=== PATIENT | female | born 1940 | race Caucasian/White ===

== ENCOUNTER 2016-10-06 05:34 | Inpatient (IN) | payer MEDICARE ==
[2016-09-26 14:15] LABS: BUN (BLOOD UREA NITROGEN) 20 MG/DL (6-23); CALCIUM, SERUM 9.8 MG/DL (8.5-10.4); CHLORIDE, SERUM 110 MMOL/L (96-112); CO2 (CARBON DIOXIDE) 26 MMOL/L (24-34); CREATININE 1.07 MG/DL (0.55-1.02); GFR AFRICAN AMERICAN 59 ML/MIN (>=60); GFR NON AFRICAN AMERICAN 51 ML/MIN (>=60); GLUCOSE, SERUM 102 MG/DL (60-99); POTASSIUM, SERUM 4.8 MMOL/L (3.5-5.3); SODIUM, SERUM 139 MMOL/L (135-148)
[2016-09-26 15:35] LABS: ASCORBIC ACID (UR NOT ORDER) 20 (NEG); BILIRUBIN, URINE NEGATIVE (NEG); KETONE, URINE NEGATIVE (NEG); LEUKOCYTE ESTERASE(NOT OR NEG (NEG); WBC (NOT ORDERED) (RFLEX) < 1 (0-5)
--- NOTE | ~2016-10-06 | DS ---
Discharge Summary [facility] [address] [place]. [address] NAME: RANGEL ARANDA : 42 STATUS : DIS IN PAT#: [id number] AGE: 76 ADM/REG DATE : 10/06/16 MR#: [id number] REPORT SERV DATE: 10/26/16 DICTATED BY: BENJIE DUTTON DATE: 10/25/16 REPORT STATUS : Draft TRANSCRIBED BY: BART DATE: 10/25/16 Data Collection from hospitalization DISCHARGE DIAGNOSES: 1. Coronary artery disease. 2. Atrial fibrillation. 3. Chronic obstructive pulmonary disease. 4. Hypertension. 5. Hyperlipidemia. 6. History of lung cancer. 7. Obesity. 8. Peripheral vascular disease. 9. Hypercholesterolemia. 10.History of myocardial infarction. 11.Chronic obstructive pulmonary disease. 12.Osteoarthritis. 13.Gastroesophageal reflux disease. 14.Depression. 15.Former tobacco use. CONSULTATIONS: Dr. Killian Keenan. PROCEDURES PERFORMED: Median sternotomy extracorporeal circulation, elective coronary artery bypass grafting x3 with ORTIZ to the LAD, reverse greater saphenous vein graft to the obtuse marginal #1, reverse greater saphenous vein graft to the distal RCA, transesophageal echocardiogram, endoscopic vein harvest from the bilateral lower extremities, rigid external fixation of the sternum, Prevena dressing placement on 10/06/2016. MEDICATIONS: Praluent 150 mg subcutaneously every 14 days, Cordarone 200 mg daily, aspirin 81 mg daily, Coreg 6.25 mg twice a day, CoQ10 of 100 mg every morning as instructed, Lasix 40 mg twice a day, Prinivil 5 mg at bedtime, Remeron 15 mg at bedtime, Dulera two puffs via inhaler twice a day as needed, niacin 500 mg daily, Nitrostat 0.4 mg sublingually as needed, Roxicodone 5 mg every six hours as needed, Percocet 10/325 one tablet every four hours as needed, Protonix 40 mg twice a day, Zoloft 100 mg twice a day, Spiriva HandiHaler one inhalation daily as instructed, Coumadin 2.5 mg every evening. She was instructed not to continue Pradaxa, isosorbide, metoprolol, or Plavix. CONDITION AT DISCHARGE: Stable. DISPOSITION: The patient was discharged to home on a mechanical soft, low-cholesterol low- sodium diet with activities as instructed. She would follow up with me, 11/07/2016. She would follow up with Dr. Colby Christie, 11/13/2016. She would follow up with Dr. Orlin Harris in 7 to 10 days following discharge. She would follow up with cardiac rehab, 11/14/2016, and have her INR level checked at the [facility], 10/16/2016. HOSPITAL COURSE: This is a 76-year-old female who has a complicated long past medical history including bilateral lobectomies for lung cancer with a remote history of smoking and Discharge Summary [id number] [place]. [address] NAME: RANGEL ARANDA : 42 STATUS : DIS IN PAT#: [id number] AGE: 76 ADM/REG DATE : 10/06/16 MR#: [id number] REPORT SERV DATE: 10/26/16 DICTATED BY: BENJIE DUTTON DATE: 10/25/16 REPORT STATUS : Draft TRANSCRIBED BY: BART DATE: 10/25/16 three-vessel coronary artery disease and anginal symptoms for which medical management was tried. She had progressive symptoms and had ultimately been referred for coronary artery bypass grafting. Treatment options were discussed and she agreed to proceed with surgical intervention. She was admitted at this time for further evaluation and treatment. Upon admission, she was taken to the operating room where she underwent the above-mentioned procedure. She tolerated this well and there were no complications. Postoperatively, she was seen by Dr. Killian Keenan. She was still intubated and sedated. She was in a normal sinus rhythm. No Crestor support was needed at this time. On postop day #1, she did complain of pain. She was going to be transferred to the floor. White count was 15.2. Creatinine level was 1.18. On 10/08/2016, she had developed atrial fibrillation overnight. Her sternum was stable. She had trace edema. She was on diltiazem. Lovenox bridging to Coumadin had been started. The following day, her INR level had increased to 2.2. She was up sitting in a chair. She said she felt good. Her only complaint was soreness with coughing and deep breathing. She was in rate controlled atrial fibrillation. Lovenox was going to be discontinued that day. Her pain was well controlled. Later in the day, she was in a sinus rhythm with paroxysms of atrial fibrillation noted. She was changed to Pradaxa. Lovenox was stopped. Metoprolol was added. The patient has mild left ventricular diastolic dysfunction. On 10/10/2016, hemoglobin level had decreased to 7.1, INR level had increased to 3.2. She had no edema. Paroxysmal atrial fibrillation was controlled on Coumadin. Coumadin had been held the previous evening until her INR level had increased. She was transfused one unit of packed red blood cells. Aspirin and amiodarone were continued. Over the next couple of days, she continued to do well. She had no new issues. Hemoglobin had increased after transfusion to 8.5. INR level was now 2.2. The Masoud drain was discontinued. Diuresis was given. Discharge planning was performed. Telemetry revealed sinus rhythm. Chest x-ray revealed bilateral effusions. Amiodarone was adjusted. Coreg was continued. Lisinopril was added. Diuresis was performed. She was mobilizing independently. On 10/12/2016, she said she felt good. She had no new complaints. She had no chest pain or pressure sensation. She remained in a sinus rhythm at this time. Coreg and amiodarone were continued. INR level was 2.2. Discharge instructions were given. Due to her improved and stable condition, she was discharged to home with the above-stated instructions. Information collected by: Ila Ragsdale I submit the above information as my discharge summary. TG/MODL Benjie Dutton MD / [id number] CC: MD Orlin Huffman M.D. Discharge Summary [address] [address] NAME: RANGEL ARANDA : 42 STATUS : DIS IN PAT#: [id number] AGE: 76 ADM/REG DATE : 10/06/16 MR#: [id number] REPORT SERV DATE: 10/26/16 DICTATED BY: BENJIE DUTTON DATE: 10/25/16 REPORT STATUS : Draft TRANSCRIBED BY: BART DATE: 10/25/16 Killian Keenan M.D.
--- NOTE | ~2016-10-06 | OP ---
Record Of Operation [address] [place]. [address] NAME: RANGEL ARANDA : 42 STATUS : ADM IN PAT#: [id number] AGE: 76 ADM/REG DATE : 10/06/16 MR#: [id number] REPORT SERV DATE: 10/06/16 DICTATED BY: BENJIE DUTTON DATE: 10/06/16 REPORT STATUS : Draft TRANSCRIBED BY: MODL DATE: 10/06/16 DATE OF PROCEDURE: 10/06/2016 PREOPERATIVE DIAGNOSES: 1. Unstable angina. 2. Three-vessel coronary artery disease. 3. Hypertension. 4. Hyperlipidemia. 5. Chronic obstructive pulmonary disease. 6. History of lung cancer x2. 7. Remote history of tobacco abuse. POSTOPERATIVE DIAGNOSES: 1. Unstable angina. 2. Three-vessel coronary artery disease. 3. Hypertension. 4. Hyperlipidemia. 5. Chronic obstructive pulmonary disease. 6. History of lung cancer x2. 7. Remote history of tobacco abuse. OPERATION/PROCEDURE PERFORMED: 1. Median sternotomy. 2. Extracorporeal circulation. 3. Elective coronary artery bypass graft x3, left internal mammary artery, left anterior descending, reverse greater saphenous vein graft to obtuse marginal #1, reverse greater saphenous vein graft to distal RCA. 4. CLEMENTINA. 5. Endoscopic vein harvest, bilateral lower extremities. 6. Rigid external fixation of the sternum. 7. Prevena dressing placement. CONTACT LENS ASSISTANT: Jamey Cardoso. ANESTHESIOLOGIST: Dr. Armando Macdonald. COMPLICATIONS: None. TUBES AND DRAINS: A 24-[place] Masoud to the left pleural space. A 32-[place] Island[place] anterior mediastinal chest tube. POSTOPERATIVE CONDITION: Stable to CVICU, weaned from cardiopulmonary bypass on no inotropic support. INTRAOPERATIVE FINDINGS: Transesophageal echo showed mild MR, mild with a mean gradient of 9, valve area of 1.9, with normal function. Post procedure, there was preserved function Record Of Operation [facility] [address] [facility] [place]. [address] NAME: RANGEL ARANDA : 42 STATUS : ADM IN PAT#: [id number] AGE: 76 ADM/REG DATE : 10/06/16 MR#: [id number] REPORT SERV DATE: 10/06/16 DICTATED BY: BENJIE DUTTON DATE: 10/06/16 REPORT STATUS : Draft TRANSCRIBED BY: MODL DATE: 10/06/16 with no change in the valvular gradients. ANATOMIC DETAILS: The vein in the left thigh was usable. Vein from the right thigh was unable to be found. Vein from her left calf and her right calf was too small to be used. Mariano test revealed that her palmar arch was not intact and at least the left hand she would not tolerate a radial graft. DETAILS OF CARDIOPULMONARY BYPASS GRAFTS: 1. ORTIZ to left anterior descending, 1.75 mm target. 2. Reverse greater saphenous vein graft to obtuse marginal #1, this is a 1.5 mm diffusely diseased target. 3. Reverse greater saphenous vein graft to distal RCA. This was 2 mm diffusely diseased target. DETAILS OF STERNAL PLATING: Sternal plating was performed with [employer] plating system. Three sternal plates were used. These were placed between the sternal wires which were stainless steel wires. A 1X plate was placed on the body of the sternum. One 100- degree plate was placed on the body of the sternum and one 100-degree plate was placed on the body of manubrium. Four 14 mm screws were used on the 100-degree plate on the body of the manubrium and twelve 12 mm screws were used for the X-plate in the 100-degree plate on the body of the sternum. INDICATIONS FOR PROCEDURE: Ms. Aranda is a 76-year-old female with a complicated long past medical history, including bilateral lobectomies for lung cancer with remote history of smoking with three-vessel coronary artery disease and anginal symptoms for which medical management was tried. She had progressive symptoms and she was ultimately referred for coronary artery bypass grafting. The risks, benefits, and alternatives were discussed with the patient including but not limited to, bleeding, infection, stroke, , heart attack, need for future operations. Her STS risk score was discussed with the patient with a total mortality risk less than 5% and a totally minimum risk less than 20% were discussed with the patient. All questions were answered. DETAILS OF PROCEDURE: The patient was brought to the operating room, placed supine on the operating room table. After satisfactory induction of general endotracheal anesthesia, she was prepped and draped in usual sterile fashion. Working simultaneously, a median sternotomy was performed while the endoscopic vein harvest was performed from bilateral lower extremities. Skin and subcutaneous tissues were divided. Clavipectoral fascia was divided. Sternum was opened. Rultract retractor was placed. Internal mammary artery was harvested in pedicle fashion. It was takeoff under the subclavian vein to the bifurcation of the diaphragm. Systemic heparinization was achieved. After 3 minutes, the pedicle was clipped and divided to the bifurcation of the diaphragm. Rultract retractor was removed. The sternal retractor was placed. Thymic tissue was opened in the midline. Pericardium was opened in the midline. Pericardial well was created. Ascending aortic cannulation was achieved. Dual stage venous cannulation was achieved through a pursestring in the right atrial side wall. Antegrade root vent cardioplegia tack was placed. The conduit was brought up, prepared for bypass. After documentation of an adequate ACT, cardiopulmonary bypass was initiated. Targets were inspected, felt to be as depicted in the findings. The Record Of Operation [facility] [address] [facility] [place]. [address] NAME: RANGEL ARANDA : 42 STATUS : ADM IN [facility]#: [id number] AGE: 76 ADM/REG DATE : 10/06/16 MR#: [id number] REPORT SERV DATE: 10/06/16 DICTATED BY: BENJIE DUTTON DATE: 10/06/16 REPORT STATUS : Draft TRANSCRIBED BY: BART DATE: 10/06/16 cross-clamp was brought up and the heart was arrested with cold antegrade cardioplegia, switching cold antegrade cardioplegia every 15 to 20 minutes throughout the remainder of the cross-clamp. The distal right artery was dissected out and the reverse greater saphenous vein graft was anastomosed to the distal RCA. This was approximately 2 mm target. Vein was cut to length, spatulated, and a running continuous anastomosis was performed after performing a proximal aortotomy with enlarging with 4 mm punch. Vein graft marker was placed. Attention was turned to the obtuse marginal #1. This was an extremely diffusely diseased artery. I was able to find a soft spot in the distal and perform a coronary bypass using reverse greater saphenous vein. This was approximately 1.5 mm. Vein was cut to length, spatulated, and a running continuous anastomosis was performed after enlarging the aortotomy with a 4.0 mm punch. Vein graft marker was placed. Attention was turned to the internal mammary artery. It was brought down through a wide V in the pericardium. It was cut to length, spatulated. The LAD was opened in its distal portion distal to the mid distal blockage. A 1.5 mm probe was unable to be passed the blockage as was a 1 mm probe was unable to be passed through the blockage. The ORTIZ was anastomosed to the LAD in running continuous fashion using 8-0 Surgipro. There was excellent Doppler flow in the graft. The pedicle was attached to the heart in two places using 6-0 Prolene. The cross- clamp was removed after de-airing the vein graft. The patient returned to sinus rhythm or paced rhythm rather by her internal pacemaker. She was able to be weaned from cardiopulmonary bypass without incident. The protamine was administered. She was decannulated. All cannulation sites were oversewn with 4-0 Prolene. Hemostasis was obtained. The pericardium was loosely reapproximated over the right ventricle and the ascending aorta. The sternum was reapproximated over 32-[place] chest tube using stainless steel sternal wires. Some of these were double wires. Clavipectoral fascia was lifted off the edge of the sternum and sternal plates were placed as mentioned above. Clavipectoral fascia was then closed over the sternal plates using running #1 StrataFix. Subcutaneous tissues closed using running #1 StrataFix. Skin and subcutaneous tissues closed using 2-0 Quill. Prevena dressing was placed and she was transferred to the CVICU in critical, stable condition. C/MODL Benjie Dutton MD / [id number] CC: MD Orlin Huffman M.D. Vinay Deep Madan, MD
[~2016-10-06 05:34] MED LIST: ALBUTEROL5 INH; AMIT10 PO; AMIT50 PO; ASAB PO; ASABAYER PO; BEN25 PO; C1 PO; C25 PO; CARDCD120 PO; CARDCD300 PO; CARDIZEM LA300 MG PO; CEFT5 PO; CHLO TUSS PO; CHOLESTEROL MED PO; CO Q-10100 MG PO; COQ10100 MG PO; COREG12 PO; COREG3 PO; COREG6 PO; COUMADIN4 MG PO; CRESTOR10 PO; CYANO1000T PO; CYMBALTA30 PO; DULERA 100 MCG/13 GM INH; DUONEB INH; ENDOCET1 TA3 PO; EX-LAX PO; FISH OIL PO; FISH-EPA1000 MG PO; FLEX PO; FOLBEE PO; GARLIC SUPPLEMENT PO; HALF81 PO; HYDROCHLOROT25 MG PO; IMDUR30 PO; IRON SUPPLEMENT PO; KLONO5 PO; L20 PO; L40 PO; LAXATIVE PO; LEVAQUIN750 MG PO; LIVALO2 MG PO; LOP25 PO; MAGNESIUM PO; MAGOX4 PO; MELATONIN5 M1 PO; MULTI-VIT HP OR; NAIL-EX2.5 MG PO; NATURE'S OP; NIACIN 500 PO; NIACIN PO; NITROSTAT0.4 MG SL; NORCO1 TA1 PO; NTG150 SL; P10 PO; PERCOCET 10/3251 TAB PO; PERCOCET1 TA4 PO; PLAVIX PO; POTASSIUM SUPPLEMENT PO; PRADAXA150 MG PO; PRALUENT P150 MG/1 M SQ; PRIN10 PO; PRIN20 PO; PROAIR HFA INH; PROTONIX PO; PROVENTSOL INH; REM15 PO; REPATHA INJ IM; SENTAB PO; SPIRIVA INH; STOOL SOFTNER PO; SUPER B COMP OR; SYSTANE OPH; T PO; TEARS NATURA OPH; URO-MAG140 MG PO; VICODINTAB PO; VIT C/RHIPS/ OR; VITAMIN B PO; VITAMIN B-12 PO; VITC500 PO; VITE PO; VITE1000 PO; X5 PO; ZANTAC 150 PO; ZANTAC150 MG PO; ZINC PO; ZINC SULFATE PO; ZOL100 PO; ZOL50 PO; [UNRECOGNIZED DRUG - OTHER] PO; [UNRECOGNIZED DRUG - OTHER] PO; [UNRECOGNIZED DRUG - REMARK] PO
[2016-10-06 06:47] LABS: BASOPHILS 0.4 %; BASOPHILS ABSOLUTE 0.03 10/3/uL (0.0-0.16); EOSINOPHILS 4.3 %; EOSINOPHILS ABSOLUTE 0.35 10/3/uL (0.0-0.53); HEMATOCRIT 30.6 % (36.0-48.0); HEMOGLOBIN 9.9 g/dL (12.0-16.0); IMMATURE GRANULOCYTES 0.2 %; IMMATURE GRANULOCYTES ABSOLUTE 0.02 10/3/uL (0.0-0.11); LYMPHOCYTES 17.3 %; LYMPHOCYTES ABSOLUTE 1.41 10/3/uL (0.67-4.30); MANUAL DIFF NO %; MEAN CORPUS HGB CONC 32.4 g/dL (32.0-36.0); MEAN CORPUSCULAR HEMOGLOB 26.7 pg (26.0-34.0); MEAN CORPUSCULAR VOLUME 82.5 fL (80-100); MEAN PLATELET VOLUME 9.3 fL (9.2-13.0); MONOCYTES 6.9 %; MONOCYTES ABSOLUTE 0.56 10/3/uL (0.21-1.20); NEUTROPHILS 70.9 %; NEUTROPHILS ABSOLUTE 5.78 10/3/uL (2.02-8.40); PLATELET COUNT 296 10/3/uL (150-400); RBC DISTRIBUTION WIDTH 14.7 % (12.0-16.0); RED CELL COUNT 3.71 10/6/uL (4.0-5.6); WHITE BLOOD CELLS 8.2 10/3/uL (4.5-10.5)
[2016-10-06 06:49] LABS: ASCORBIC ACID (UR NOT ORDER) NEG (NEG); BILIRUBIN, URINE NEGATIVE (NEG); KETONE, URINE NEGATIVE (NEG); LEUKOCYTE ESTERASE(NOT OR SMALL (NEG); WBC (NOT ORDERED) (RFLEX) 4 (0-5)
[2016-10-06 06:49] LABS: INTERNATIONAL NORMAL RATI 1.1 UNITS (-); PROTIME (NOT ORD) 13.7 SEC (12.0-14.5)
[2016-10-06 06:57] LABS: ALBUMIN 3.9 G/DL (3.5-5.0); CALCIUM, SERUM 9.1 MG/DL (8.5-10.4); CHLORIDE, SERUM 107 MMOL/L (96-112); CO2 (CARBON DIOXIDE) 30 MMOL/L (24-34); CREATININE 1.18 MG/DL (0.55-1.02); GFR AFRICAN AMERICAN 53 ML/MIN (>=60); GFR NON AFRICAN AMERICAN 45 ML/MIN (>=60); GLUCOSE, SERUM 96 MG/DL (60-99); IRON BINDING CAPACITY 352 MCG/DL (225-410); SGOT(AST) 19 U/L (5-40); SGPT(ALT) 20 U/L (5-65); SODIUM, SERUM 143 MMOL/L (135-148); TOTAL BILIRUBIN 0.3 MG/DL (0-1.2); TOTAL PROTEIN 7.6 G/DL (6.0-8.5)
[2016-10-06 06:58] LABS: A/G RATIO 1.1 (0.7-1.9); ALKALINE PHOSPHATASE 104 U/L (45-117); BUN (BLOOD UREA NITROGEN) 33 MG/DL (6-23); GLOBULIN 3.7 G/DL (2.5-4.1)
[2016-10-06 08:06] LABS: MAX AMP (ADP) 62.3 MM (35-68); TEG - ANGLE 76.3 DEG (53-72); TEG - MAXIMUM AMPLITUDE 69.3 MM (50-70); TEG - RATE 4.8 MIN (5.0-10.0); TEG PLAVIX/EFFIENT/TICLID(ADP) 14.5 % INHIB (< 40)
[2016-10-06 13:46] LABS: BE (BASE EXCESS) 0.9 MEQ/L (0 +/- 2.5); CARBOXYHEMOGLOBIN 0.3 % (0-3); HCO3 (ACTUAL BICARBONATE) 26.5 MEQ/L (23-27); HEMOBLOGIN CONTENT 8.9 G/DL (12-16); INSTRUMENT SERIAL # 11843; METHEMOGLOBIN 0.6 % (0-3); MODE SIMV; O2 CONTENT 12.7 VOL% (18-24); OPERATOR ID 13715; PCO2 (CO2 TENSION) 47 MMHG (35-45); PO2 (O2 TENSION) 213 MMHG (79-93); SAMPLE Arterial; TIDAL VOLUME 650 ML; pH 7.37 (7.37-7.43)
[2016-10-06 13:49] LABS: HEMOGLOBIN 8.3 g/dL (12.0-16.0)
[2016-10-06 13:51] LABS: HEMATOCRIT 25.3 % (36.0-48.0); PLATELET COUNT 191 10/3/uL (150-400)
[2016-10-06 13:56] LABS: FIBRINOGEN 298 MG/DL (230-462); INTERNATIONAL NORMAL RATI 1.3 UNITS (-); PARTIAL THROMBO TIME 39.3 SEC (22.5-37.2); PROTIME (NOT ORD) 16.1 SEC (12.0-14.5)
[2016-10-06 14:00] LABS: CALCIUM, SERUM 8.7 MG/DL (8.5-10.4); CO2 (CARBON DIOXIDE) 28 MMOL/L (24-34); CREATININE 1.31 MG/DL (0.55-1.02); GFR AFRICAN AMERICAN 46 ML/MIN (>=60); GFR NON AFRICAN AMERICAN 40 ML/MIN (>=60); GLUCOSE, SERUM 110 MG/DL (60-99)
[2016-10-06 14:01] LABS: BUN (BLOOD UREA NITROGEN) 29 MG/DL (6-23); CHLORIDE, SERUM 110 MMOL/L (96-112); SODIUM, SERUM 144 MMOL/L (135-148)
[2016-10-06 17:49] LABS: BE (BASE EXCESS) -0.9 MEQ/L (0 +/- 2.5); CARBOXYHEMOGLOBIN 0.6 % (0-3); HEMOBLOGIN CONTENT 9.2 G/DL (12-16); INSTRUMENT SERIAL # 11843; METHEMOGLOBIN 0.5 % (0-3); O2 CONTENT 12.8 VOL% (18-24); PCO2 (CO2 TENSION) 48 MMHG (35-45); PO2 (O2 TENSION) 135 MMHG (79-93); SAMPLE Arterial; pH 7.34 (7.37-7.43)
[2016-10-06 17:50] LABS: DEVICE NC; OPERATOR ID 13715
[2016-10-06 21:15] LABS: HEMATOCRIT 26.1 % (36.0-48.0); HEMOGLOBIN 8.6 g/dL (12.0-16.0)
[2016-10-06 21:23] LABS: POTASSIUM, SERUM 4.2 MMOL/L (3.5-5.3)
[2016-10-07 03:43] LABS: BASOPHILS 0 %; EOSINOPHILS 0 %; HEMATOCRIT 25.7 % (36.0-48.0); HEMOGLOBIN 8.2 g/dL (12.0-16.0); IMMATURE GRANULOCYTES 0.2 %; IMMATURE GRANULOCYTES ABSOLUTE 0.03 10/3/uL (0.0-0.11); LYMPHOCYTES 6.4 %; LYMPHOCYTES ABSOLUTE 0.97 10/3/uL (0.67-4.30); MEAN CORPUS HGB CONC 31.9 g/dL (32.0-36.0); MEAN CORPUSCULAR HEMOGLOB 26.5 pg (26.0-34.0); MEAN CORPUSCULAR VOLUME 83.2 fL (80-100); MEAN PLATELET VOLUME 8.9 fL (9.2-13.0); MONOCYTES 7.2 %; MONOCYTES ABSOLUTE 1.09 10/3/uL (0.21-1.20); NEUTROPHILS 86.2 %; NEUTROPHILS ABSOLUTE 13.11 10/3/uL (2.02-8.40); PLATELET COUNT 211 10/3/uL (150-400); RBC DISTRIBUTION WIDTH 15.1 % (12.0-16.0); RED CELL COUNT 3.09 10/6/uL (4.0-5.6)
[2016-10-07 03:46] LABS: MANUAL DIFF NO %; WHITE BLOOD CELLS 15.2 10/3/uL (4.5-10.5)
[2016-10-07 03:53] LABS: INTERNATIONAL NORMAL RATI 1.2 UNITS (-); PROTIME (NOT ORD) 15.3 SEC (12.0-14.5)
[2016-10-07 04:00] LABS: BUN (BLOOD UREA NITROGEN) 30 MG/DL (6-23); CALCIUM, SERUM 8.5 MG/DL (8.5-10.4); CHLORIDE, SERUM 112 MMOL/L (96-112); CO2 (CARBON DIOXIDE) 26 MMOL/L (24-34); CREATININE 1.18 MG/DL (0.55-1.02); GFR AFRICAN AMERICAN 53 ML/MIN (>=60); GFR NON AFRICAN AMERICAN 45 ML/MIN (>=60); GLUCOSE, SERUM 110 MG/DL (60-99); POTASSIUM, SERUM 3.8 MMOL/L (3.5-5.3); SODIUM, SERUM 145 MMOL/L (135-148)
[2016-10-07 20:40] LABS: HEMOGLOBIN 8.9 g/dL (12.0-16.0)
[2016-10-07 20:41] LABS: HEMATOCRIT 28.3 % (36.0-48.0)
[2016-10-07 20:58] LABS: POTASSIUM, SERUM 4.8 MMOL/L (3.5-5.3)
[2016-10-08 04:23] LABS: BASOPHILS 0.1 %; BASOPHILS ABSOLUTE 0.01 10/3/uL (0.0-0.16); EOSINOPHILS 0.1 %; EOSINOPHILS ABSOLUTE 0.01 10/3/uL (0.0-0.53); HEMATOCRIT 26.9 % (36.0-48.0); HEMOGLOBIN 8.5 g/dL (12.0-16.0); IMMATURE GRANULOCYTES 0.4 %; IMMATURE GRANULOCYTES ABSOLUTE 0.07 10/3/uL (0.0-0.11); LYMPHOCYTES ABSOLUTE 1.13 10/3/uL (0.67-4.30); MEAN CORPUS HGB CONC 31.6 g/dL (32.0-36.0); MEAN CORPUSCULAR HEMOGLOB 26.9 pg (26.0-34.0); MEAN CORPUSCULAR VOLUME 85.1 fL (80-100); MEAN PLATELET VOLUME 9.3 fL (9.2-13.0); MONOCYTES 7.4 %; MONOCYTES ABSOLUTE 1.19 10/3/uL (0.21-1.20); NEUTROPHILS ABSOLUTE 13.72 10/3/uL (2.02-8.40); PLATELET COUNT 236 10/3/uL (150-400); RBC DISTRIBUTION WIDTH 15.5 % (12.0-16.0); RED CELL COUNT 3.16 10/6/uL (4.0-5.6); WHITE BLOOD CELLS 16.1 10/3/uL (4.5-10.5)
[2016-10-08 04:35] LABS: MANUAL DIFF NO %
[2016-10-08 04:36] LABS: BUN (BLOOD UREA NITROGEN) 27 MG/DL (6-23); CALCIUM, SERUM 9.3 MG/DL (8.5-10.4); CHLORIDE, SERUM 108 MMOL/L (96-112); CO2 (CARBON DIOXIDE) 27 MMOL/L (24-34); CREATININE 1.01 MG/DL (0.55-1.02); GFR AFRICAN AMERICAN 64 ML/MIN (>=60); GFR NON AFRICAN AMERICAN 55 ML/MIN (>=60); POTASSIUM, SERUM 4.6 MMOL/L (3.5-5.3); SODIUM, SERUM 141 MMOL/L (135-148)
[2016-10-08 04:38] LABS: GLUCOSE, SERUM 156 MG/DL (60-99)
[2016-10-09 05:02] LABS: INTERNATIONAL NORMAL RATI 2.2 UNITS (-)
[2016-10-09 05:05] LABS: PROTIME (NOT ORD) 24.1 SEC (12.0-14.5)
[2016-10-10 05:47] LABS: INTERNATIONAL NORMAL RATI 3.2 UNITS (-)
[2016-10-10 05:49] LABS: PROTIME (NOT ORD) 32.8 SEC (12.0-14.5)
[2016-10-10 05:55] LABS: BASOPHILS 0.1 %; BASOPHILS ABSOLUTE 0.01 10/3/uL (0.0-0.16); CALCIUM, SERUM 9.1 MG/DL (8.5-10.4); CHLORIDE, SERUM 106 MMOL/L (96-112); CO2 (CARBON DIOXIDE) 26 MMOL/L (24-34); CREATININE 0.82 MG/DL (0.55-1.02); EOSINOPHILS 4.1 %; EOSINOPHILS ABSOLUTE 0.33 10/3/uL (0.0-0.53); GFR AFRICAN AMERICAN 82 ML/MIN (>=60); GFR NON AFRICAN AMERICAN 70 ML/MIN (>=60); HEMOGLOBIN 7.1 g/dL (12.0-16.0); IMMATURE GRANULOCYTES 0.4 %; IMMATURE GRANULOCYTES ABSOLUTE 0.03 10/3/uL (0.0-0.11); LYMPHOCYTES 13.7 %; LYMPHOCYTES ABSOLUTE 1.11 10/3/uL (0.67-4.30); MEAN CORPUS HGB CONC 31.1 g/dL (32.0-36.0); MEAN CORPUSCULAR HEMOGLOB 26.3 pg (26.0-34.0); MEAN CORPUSCULAR VOLUME 84.4 fL (80-100); MEAN PLATELET VOLUME 8.9 fL (9.2-13.0); MONOCYTES 10.3 %; MONOCYTES ABSOLUTE 0.83 10/3/uL (0.21-1.20); NEUTROPHILS 71.4 %; NEUTROPHILS ABSOLUTE 5.77 10/3/uL (2.02-8.40); PLATELET COUNT 250 10/3/uL (150-400); RBC DISTRIBUTION WIDTH 15.2 % (12.0-16.0); SODIUM, SERUM 139 MMOL/L (135-148)
[2016-10-10 05:56] LABS: BUN (BLOOD UREA NITROGEN) 23 MG/DL (6-23); GLUCOSE, SERUM 103 MG/DL (60-99); HEMATOCRIT 22.8 % (36.0-48.0); MANUAL DIFF NO %; WHITE BLOOD CELLS 8.1 10/3/uL (4.5-10.5)
[2016-10-10 17:18] LABS: HEMATOCRIT 27.4 % (36.0-48.0); HEMOGLOBIN 9.1 g/dL (12.0-16.0)
[2016-10-11 05:34] LABS: BASOPHILS 0.1 %; BASOPHILS ABSOLUTE 0.01 10/3/uL (0.0-0.16); EOSINOPHILS ABSOLUTE 0.39 10/3/uL (0.0-0.53); HEMOGLOBIN 8.5 g/dL (12.0-16.0); IMMATURE GRANULOCYTES 0.5 %; IMMATURE GRANULOCYTES ABSOLUTE 0.04 10/3/uL (0.0-0.11); LYMPHOCYTES 15.6 %; LYMPHOCYTES ABSOLUTE 1.21 10/3/uL (0.67-4.30); MEAN CORPUSCULAR HEMOGLOB 27.5 pg (26.0-34.0); MEAN CORPUSCULAR VOLUME 84.1 fL (80-100); MEAN PLATELET VOLUME 8.9 fL (9.2-13.0); MONOCYTES ABSOLUTE 0.93 10/3/uL (0.21-1.20); NEUTROPHILS 66.8 %; NEUTROPHILS ABSOLUTE 5.18 10/3/uL (2.02-8.40); PLATELET COUNT 265 10/3/uL (150-400); RED CELL COUNT 3.09 10/6/uL (4.0-5.6); WHITE BLOOD CELLS 7.8 10/3/uL (4.5-10.5)
[2016-10-11 05:35] LABS: MANUAL DIFF NO %; MEAN CORPUS HGB CONC 32.7 g/dL (32.0-36.0)
[2016-10-11 05:42] LABS: INTERNATIONAL NORMAL RATI 2.2 UNITS (-)
[2016-10-11 05:47] LABS: PROTIME (NOT ORD) 23.9 SEC (12.0-14.5)
[2016-10-11 05:49] LABS: CALCIUM, SERUM 9.2 MG/DL (8.5-10.4); CHLORIDE, SERUM 105 MMOL/L (96-112); CO2 (CARBON DIOXIDE) 24 MMOL/L (24-34); CREATININE 0.77 MG/DL (0.55-1.02); GFR AFRICAN AMERICAN 88 ML/MIN (>=60); GFR NON AFRICAN AMERICAN 76 ML/MIN (>=60); GLUCOSE, SERUM 99 MG/DL (60-99); POTASSIUM, SERUM 3.9 MMOL/L (3.5-5.3); SODIUM, SERUM 138 MMOL/L (135-148)
[2016-10-11 05:56] LABS: BUN (BLOOD UREA NITROGEN) 16 MG/DL (6-23)
[2016-10-12 05:47] LABS: INTERNATIONAL NORMAL RATI 2.2 UNITS (-); PROTIME (NOT ORD) 24.6 SEC (12.0-14.5)
[2016-10-12 05:54] LABS: CHLORIDE, SERUM 108 MMOL/L (96-112); CO2 (CARBON DIOXIDE) 27 MMOL/L (24-34); CREATININE 1.03 MG/DL (0.55-1.02); GFR AFRICAN AMERICAN 62 ML/MIN (>=60); GFR NON AFRICAN AMERICAN 54 ML/MIN (>=60); GLUCOSE, SERUM 116 MG/DL (60-99); POTASSIUM, SERUM 4.3 MMOL/L (3.5-5.3); SODIUM, SERUM 142 MMOL/L (135-148)
[2016-10-12 05:56] LABS: BUN (BLOOD UREA NITROGEN) 23 MG/DL (6-23)
[2016-10-12 06:02] LABS: BASOPHILS 0.2 %; BASOPHILS ABSOLUTE 0.02 10/3/uL (0.0-0.16); EOSINOPHILS 4.7 %; EOSINOPHILS ABSOLUTE 0.41 10/3/uL (0.0-0.53); HEMATOCRIT 26.4 % (36.0-48.0); HEMOGLOBIN 8.4 g/dL (12.0-16.0); IMMATURE GRANULOCYTES ABSOLUTE 0.09 10/3/uL (0.0-0.11); LYMPHOCYTES 18.1 %; LYMPHOCYTES ABSOLUTE 1.58 10/3/uL (0.67-4.30); MEAN CORPUS HGB CONC 31.8 g/dL (32.0-36.0); MEAN CORPUSCULAR HEMOGLOB 27.5 pg (26.0-34.0); MEAN CORPUSCULAR VOLUME 86.3 fL (80-100); MEAN PLATELET VOLUME 9.1 fL (9.2-13.0); MONOCYTES 11.6 %; MONOCYTES ABSOLUTE 1.01 10/3/uL (0.21-1.20); NEUTROPHILS 64.4 %; NUCLEATED RED BLOOD CELLS 0.2 /100WBC (0-0); PLATELET COUNT 289 10/3/uL (150-400); RBC DISTRIBUTION WIDTH 15.2 % (12.0-16.0); RED CELL COUNT 3.06 10/6/uL (4.0-5.6); WHITE BLOOD CELLS 8.7 10/3/uL (4.5-10.5)
[2016-10-12 06:03] LABS: MANUAL DIFF NO %
[2016-10-12] MEDS ORDERED: ASAB PO (14:03)
[2016-10-12] MEDS ORDERED: CORDARONE PO (14:03)
[2016-10-12] MEDS ORDERED: C25 PO (14:04)
[2016-10-12] MEDS ORDERED: OXYCOD PO (14:05)
[2016-11-30] MEDS ORDERED: CO Q-10100 MG PO (15:58)
[2016-11-30] MEDS ORDERED: PRADAXA150 MG PO (15:58)
[2016-11-30] MEDS ORDERED: COREG12 PO (15:58)
[2016-11-30] MEDS ORDERED: PRALUENT P150 MG/1 M SQ (15:58)
[2016-11-30] MEDS ORDERED: FISH-EPA1000 MG PO (15:59)
[2016-11-30] MEDS ORDERED: PRIN20 PO (15:59)
[2016-11-30] MEDS ORDERED: L40 PO (15:59)
[2016-11-30] MEDS ORDERED: MULTIPLE VIT PO (16:00)
[2016-11-30] MEDS ORDERED: DULERA 100 MCG/13 GM INH (16:01)
[2016-11-30] MEDS ORDERED: NIACIN 500 PO (16:03)
[2016-11-30] MEDS ORDERED: NTG150 SL (16:03)
[2016-11-30] MEDS ORDERED: PERCOCET 10/3251 TAB PO (16:03)
[2016-11-30] MEDS ORDERED: ZOL100 PO (16:04)
[2016-11-30] MEDS ORDERED: PROTONIX PO (16:04)
[2016-11-30] MEDS ORDERED: SPIRIVA INH (16:04)
[2016-12-05] MEDS ORDERED: DURICEF PO (17:26)
[2016-12-05] MEDS ORDERED: MIRALAX POWDER1 PKT PO (17:28)
== END 2016-10-12 17:24 | disposition home or self-care (01) | DRG 236 ==
LOC: SDC/OF 05:34 → CVICU 13:20 → 5NO 10-07 11:18
PROVIDERS: Internal Medicine Cardiovascular Disease; Nurse Practitioner Family; Thoracic Surgery (Cardiothoracic Vascular Surgery)
PROC: 0PH404Z Insertion of Internal Fixation Device into Thoracic Vertebra, Open Approach (ICD-10-PCS; 2016-10-06)
PROC: B246ZZ4 Ultrasonography of Right and Left Heart, Transesophageal (ICD-10-PCS; 2016-10-06)
PROC: 5A1221Z Performance of Cardiac Output, Continuous (ICD-10-PCS; 2016-10-06)
PROC: 30233N1 Transfusion of Nonautologous Red Blood Cells into Peripheral Vein, Percutaneous Approach (ICD-10-PCS; 2016-10-06)
PROC: 021109W Bypass Coronary Artery, Two Arteries from Aorta with Autologous Venous Tissue, Open Approach (ICD-10-PCS; principal; 2016-10-06 07:30)
PROC: 02100Z9 Bypass Coronary Artery, One Artery from Left Internal Mammary, Open Approach (ICD-10-PCS; 2016-10-06 07:30)
PROC: 06BQ4ZZ Excision of Left Saphenous Vein, Percutaneous Endoscopic Approach (ICD-10-PCS; 2016-10-06 07:30)
PROC: 06BP4ZZ Excision of Right Saphenous Vein, Percutaneous Endoscopic Approach (ICD-10-PCS; 2016-10-06 07:30)
DX: I25.110 Atherosclerotic heart disease of native coronary artery with unstable angina pectoris (principal); I48.0 Paroxysmal atrial fibrillation; J44.9 Chronic obstructive pulmonary disease, unspecified; D62 Acute posthemorrhagic anemia; I10 Essential (primary) hypertension; E78.5 Hyperlipidemia, unspecified; Z85.118 Personal history of other malignant neoplasm of bronchus and lung; Z87.891 Personal history of nicotine dependence; Z95.1 Presence of aortocoronary bypass graft; Z79.01 Long term (current) use of anticoagulants
CPT/HCPCS: 36415; 71010; 71020; 80048; 80053; 81001; 82330; 82803; 82805; 82947; 82962; 83036; 83550; 83735; 84132; 84295; 85014; 85018; 85025; 85049; 85347; 85384; 85576; 85576-59; 85610; 85730; 86850; 86900; 86901; 86920; 87086; 87641; 93005; 93312; 93320; 93325; 94002; 94640; 94660; 94770; A9270-GY; C1713; C1751; C1769; C1894; C9113; J0690; J1170; J1644; J1940; J2250; J2370; J2440; J2720; J2930; J3010; J3370; J3475; J3480; P9016; P9045; P9047